=== PATIENT | female | born 1975 | race Caucasian/White ===

== ENCOUNTER 2020-11-25 19:40 | Emergency (ER) | payer OTHER ==
[~2020-11-25 19:40] MED LIST: COLACE 100MG C100 MG PO
[2020-11-25 20:14] LABS: HEMOGLOBIN 15.6 gm/dl (12.3-15.3); RED BLOOD COUNT 5.14 M/UL (4.00-5.10)
[2020-11-25 20:47] LABS: BUN/CREATININE RATIO 9 (0-10)
== END 2020-11-26 01:00 | disposition home or self-care (01) ==
LOC: ER1 19:40
PROVIDERS: Emergency Medicine
DX: K80.70 Calculus of gallbladder and bile duct without cholecystitis without obstruction (principal); Z20.822 Contact with and (suspected) exposure to COVID-19
CPT/HCPCS: 0240U; 71045; 80053; 81001; 82550; 82553; 83605; 83690; 84484; 84703; 85025; 93005; 96365; 96375; 96376; 99285; J2405; J2550; J3010; Q9967